=== PATIENT | male | born 1945 | race Caucasian/White ===

== ENCOUNTER 2016-08-11 12:17 | Day surgery (SDC) | payer MEDICARE, OTHER ==
[2016-08-05 10:40] LABS: HEMATOCRIT 39.9 % (40.0-51.0); HEMOGLOBIN 12.8 g/dL (13.6-17.8)
[2016-08-05 10:49] LABS: BUN (BLOOD UREA NITROGEN) 20 MG/DL (6-23); CALCIUM, SERUM 9.6 MG/DL (8.5-10.4); CHLORIDE, SERUM 106 MMOL/L (96-112); CO2 (CARBON DIOXIDE) 28 MMOL/L (24-34); CREATININE 1.25 MG/DL (0.70-1.30); GFR AFRICAN AMERICAN 67 ML/MIN (>=60); GFR NON AFRICAN AMERICAN 58 ML/MIN (>=60); GLUCOSE, SERUM 97 MG/DL (60-99); POTASSIUM, SERUM 4.2 MMOL/L (3.5-5.3); SODIUM, SERUM 141 MMOL/L (135-148)
--- NOTE | ~2016-08-11 | OP ---
Record Of Operation [facility] [address] [place]. [address] NAME: MARGARET BARAJAS : 43 STATUS : [facility]#: [id number] AGE: 70 ADM/REG DATE : 08/11/16 MR#: [id number] REPORT SERV DATE: 08/11/16 DICTATED BY: ALEJANDRO SUN DATE: 08/11/16 REPORT STATUS : Draft TRANSCRIBED BY: REID DATE: 08/11/16 DATE OF PROCEDURE: 08/11/2016 PREOPERATIVE DIAGNOSIS: Recurrent left inguinal hernia. POSTOPERATIVE DIAGNOSIS: Recurrent left inguinal hernia. OPERATION: Left inguinal hernia repair with mesh. FINDINGS: The patient had an indirect left inguinal hernia, recurrent. SUMMARY: After adequate general anesthesia, prep and drape, a left lower quadrant transverse incision was made in the skin fold and carried down to the external oblique, which was then opened in direction of the fibers. The hernia sac was dissected free from the cord structures. The small hernia sac was opened and no femoral hernia was noted. The sac was then ligated with a 2-0 silk suture and a portion of the sac was amputated. A small PerFix plug was then placed in the defect, sutured to the transversalis fascia in the shelving portion of the inguinal ring with interrupted 0 Nurolon suture. A second piece of mesh was then fashioned to cover the floor, this was sutured to the pubis, to the transversalis fascia, and the shelving portion of the inguinal ligament with 2-0 Nurolon suture. A keyhole deformity was made and the mesh and the cord was brought through the keyhole deformity. The ilioinguinal nerve was noted to be very large and divided in the midportion of the floor and this was preserved. After adequate irrigation, the tails of the two mesh on either side of the cord were then sutured to itself. Good hemostasis was obtained. The defect appeared well covered. The external oblique was closed running 2-0 PDS. Subcutaneous tissue and skin was closed in routine fashion after injection of 0.5% Marcaine without. The patient tolerated the procedure well and taken to recovery room in satisfactory condition. MAN/REID Alejandro Sun M.D. / [id number] CC: Mary David M.D.
[~2016-08-11 12:17] MED LIST: COZ25 PO; FLOMAX4 PO; JUICE PLUS PO; LIPITOR10 PO; MAGNESIUM; POTASSIUM GLUCO99 MG PO; SEVERAL VITAMINS
== END 2016-08-11 17:29 | disposition home or self-care (01) ==
LOC: SDC 12:17
PROVIDERS: Specialist
PROC: 0YU60JZ Supplement Left Inguinal Region with Synthetic Substitute, Open Approach (ICD-10-PCS; principal; 2016-08-11 14:00)
DX: K40.91 Unilateral inguinal hernia, without obstruction or gangrene, recurrent (principal); I10 Essential (primary) hypertension; E78.00 Pure hypercholesterolemia, unspecified; Z88.5 Allergy status to narcotic agent; Z91.013 Allergy to seafood; Z79.899 Other long term (current) drug therapy; Z98.890 Other specified postprocedural states
CPT/HCPCS: 80048; 85014; 85018; 88302; 93005; A9270-GY; C1781; J0690; J1885; J2250; J2405; J2710; J3010